=== PATIENT | female | born 1945 | race Caucasian/White ===

== ENCOUNTER → 2020-03-15 15:17 | Outpatient (CLI) | payer MEDICARE, OTHER, SELFPAY ==
--- NOTE | 2020-03-15 15:19 | DI.MRI.S_ITS ---
PROCEDURE: MR LUMBAR SPINE WO CON INDICATIONS: L1 fracture, L4-5 slip right lower extremity symptoms TECHNIQUE: Noncontrast sagittal T1 spin echo and T2 fast echo, sagittal STIR, axial T1 and T2 fast spin echo through the lumbar spine. In cases with scoliosis, additional coronal T2 fast spin echo may be performed. COMPARISON: [facility], , MRI L-SPINE W/O CONTRAST, 12/01/2016, 8:11. [facility], , MRI L-SPINE W/O CONTRAST, 07/12/2012, 9:04. [facility], , MRI L-SPINE W/O CONTRAST, 05/08/2015, 8:02. [facility], , XR L-SPINE 2-3V, 05/13/2016, 12:33. [facility], , CT L SPINE WITHOUT CONTRAST, 05/13/2016, 14:00. [facility], , XR L-SPINE 4-6V, 01/27/2020, 8:34. FINDINGS: Image quality: Excellent. Alignment and Curvature: There is minimal anterolisthesis seen at the L4-L5 level. Bone Marrow: Marrow is of normal overall signal. No acute vertebral body compression fractures. There is a remote appearing fracture seen involving the L2 vertebral body, with 30-40% loss of height anteriorly. Minimal posterior displacement of fracture fragments can be seen, approximately 2 mm. Spinal Cord: Conus medullaris terminates at the L1 level. Visualized cord demonstrates normal signal and size. Paraspinous Soft Tissues: No paravertebral masses. T12-L1: No significant abnormality is seen. L1-L2: The disc height is well-preserved. Loss of disc signal is seen at this level. Mild generalized disc bulge is seen. There is mild left-sided and no significant right-sided neural foraminal narrowing seen. Mild central canal narrowing is seen. When comparison is made with the prior examination, these findings are similar. L2-L3: The disc height is well-preserved. Loss of disc signal is seen at this level. Mild to moderate disc bulge is seen, with a mild central disc protrusion. There is oszi-cq-crzlrvqv right-sided and at least moderate left-sided neural foraminal narrowing seen. Mild central canal narrowing is seen. These imaging findings have progressed compared to the prior study. L3-L4: The disc height is well-preserved. Loss of disc signal is seen at this level. Moderate disc bulge is seen, which is eccentric to the left. Mild to moderate facet hypertrophy is seen. There is moderate right-sided and moderate to severe left-sided neural foraminal narrowing seen. There is a degree of compression seen upon the exiting left L3 nerve root. Mild central canal narrowing is seen. These imaging findings have progressed compared to the prior study. L4-L5: The disc height is well-preserved. Loss of disc signal is seen at this level. Moderate disc bulge is seen, with a mild central disc protrusion. Prominent facet hypertrophy is seen at this level. There is moderate to severe bilateral neural foraminal narrowing seen, left worse than right. There is a degree of compression seen upon the exiting nerve roots. Moderate to severe central canal narrowing is seen. Compared to 2017, these degenerative changes have progressed. L5-S1: The disc height is well-preserved. Loss of disc signal is seen at this level. Mild generalized disc bulge is seen. Mild facet joint hypertrophy is seen. Mild bilateral neural foraminal narrowing is seen. Mild to moderate central canal narrowing is seen at this level. Slight progression compared to 2017. IMPRESSION: Multiple levels of lumbar spine degenerative change are seen, which are overall worst at the L4-L5 level. Compared to 2017, the degenerative changes have progressed. Remote L2 anterior wedge deformity noted. Dictated by: Brigido Cook M.D. on 03/15/2020 at 15:55 Approved by: Brigido Cook M.D. on 03/15/2020 at 16:00
== END ==
PROVIDERS: PCP Nurse Practitioner Family; Referring Provider Physical Medicine & Rehabilitation; Visit Provider Physical Medicine & Rehabilitation
DX: S32.019A Unspecified fracture of first lumbar vertebra, initial encounter for closed fracture (principal); M51.26 Other intervertebral disc displacement, lumbar region; M43.16 Spondylolisthesis, lumbar region; M47.816 Spondylosis without myelopathy or radiculopathy, lumbar region
CPT/HCPCS: 72148

== ENCOUNTER → 2021-05-23 10:04 | Outpatient (CLI) | payer MEDICARE, OTHER, SELFPAY ==
[2021-05-23 14:03] LABS: COVID19 -Nasal RAPID Negative (Negative)
== END ==
PROVIDERS: PCP Nurse Practitioner Family; Visit Provider Physical Medicine & Rehabilitation
DX: Z20.822 Contact with and (suspected) exposure to COVID-19 (principal)
CPT/HCPCS: 87635; C9803

== ENCOUNTER 2021-05-24 09:44 | Outpatient (CLI) | payer MEDICARE, OTHER, SELFPAY ==
[2021-05-24] VITALS (8 sets, daily range): BP systolic 134–175; BP diastolic 67–81; PULSE 60–70; RESP 11–20; TEMP 36.7; O2SAT 98–100
--- NOTE | 2021-05-24 09:46 | DI.RAD.S_ITS ---
PROCEDURE: PAIN L/S TRANSFORAMINAL INJECT INDICATIONS: SPONDYLOSIS COMPARISON: None. FINDINGS: Fluoroscopic spot filming was performed to verify placement of spinal needles at the right L4-L5 neural foramen level(s), as labeled on the films. Appropriate location(s) of the needle tip(s) was confirmed by injection of iodinated contrast. IMPRESSION: Access needle at the right L4-L5 neural foramen for epidural steroid injection. Dictated by: Tir Hernandez MD, PhD on 05/24/2021 at 11:52 Approved by: Tri Hernandez MD, PhD on 05/24/2021 at 11:53
[2021-05-24] MEDS: MIDAZOLAM 5 MG/5 ML VIAL IV (10:39)
[2021-05-24] MEDS: BUPIVACAINE 0.25% (PF) VIAL 2 ML INJ (10:46)
[2021-05-24] MEDS: BETAMETHASONE 30 MG/5 ML MDV 6 MG INJ (10:46)
[2021-05-24] MEDS: IOPAMIDOL 15 ML VIAL 3 ML INJ (10:46)
[2021-05-24] MEDS: fentaNYL 250 MCG/5 ML INJ 50 MCG IV (10:47)
[2021-05-24] MEDS: DEXAMETHASONE 10 MG/ML VIAL 20 MG INJ (10:47)
--- NOTE | 2021-05-24 10:52 | P.PCN_ITS ---
Date/Time/Diagnoses Date of procedure: 05/24/21 Time of procedure: 10:52 Pre-procedure diagnosis: 1. FORAMINAL STENOSIS WITH LE SYMPTOMS Post-procedure diagnosis: same Procedure Notes Procedure: 1. FLUOROSCOPICALLY GUIDED CONTRAST CONTROLLED TRANSFORAMINAL EPIDURAL STEROID INJECTION - RIGHT L4/5 TFESI Indications: Yesi is referred by NOMI Young for treatment of Foraminal Stenosis with Right LE Symptoms Physician: Shiva Dixon Total Fluoroscopy time (seconds): 6 Total sedation minutes: 10 Complications: none Procedure in detail & Post-procedure care: FINDINGS Foraminal Nerve Root Compression secondary to disc disease and facet hypertrophy DESCRIPTION OF PROCEDURE Following review of allergy and review of potential side effects and complications, including, but not necessarily limited to, infection, allergic reaction, local tissue breakdown, stroke, temporary or permanent nerve injury, paralysis, and possible , the patient indicated that the patient understood and agreed to proceed. An informed consent document was signed by the patient, witnessed by a nurse, and placed in the patient's chart. Additionally, other treatment options including medications, modalities, and physical therapy were reviewed with the patient. After review of previous anaesthesic history and IV conscious sedation the patient was deemed safe to proceed with today?s procedure with IV conscious sedation as ASA class II designation. Safety time-out was performed to confirm patient ID, procedure to be performed and site of procedure. IV sedation was accomplished with a combination of 2mg of Versed and 50mcg of Fentanyl was administered by the RN after DO order, titrated to patient comfort during the course of the procedure while the patient remained responsive to all verbal c ommands In the prone position following sterile prep and drape of the lumbar region, the right L4/5 posterior neuroforamen was identified fluoroscopically. The skin was anesthetized via a 25-gauge 1.5-inch needle with 1% lidocaine solution. At this point, a 25-gauge 3.5-inch spinal needle was atraumatically introduced and advanced under fluoroscopic guidance through the posterior right L4/5 neuroforamen to approximately the anterior aspect of the canal. Depth was confirmed on lateral view. Following negative aspiration, injection of approximately 1.5cc of Isovue 200 under live fluoroscopy in the AP view confirmed excellent flow along the nerve root, into the epidural space without vascular or intrathecal uptake observed Radiological data, including multiple fluoroscopic views of the lumbosacral spine, reveal a spinal needle at the right L4/5 posterior neuroforamen. Subsequent views show flow of contrast material flowing superiorly and inferiorly along the nerve root confirming epidural flow. Subsequently, a test dose of 1.5 cc of 1% lidocaine solution was administered and patient was observed for two minutes for signs or symptoms of complications, including abdominal pain, shortness of breath, bilateral upper or lower extremity weakness, nausea and vomiting, prior to steroid injection. At this point, a total of 3cc or 20mg of dexamethasone and 6mg of betamethasone was injected without incident. The procedure tolerated the procedure well without signs or symptoms of complications prior to transfer to the recovery area continued monitoring without incident. The patient was then transferred to the recovery area where they were observed for an appropriate time after the injection. The patient reported a VAS score of 7 prior to the procedure and a post- procedure VAS of 0. POST OP INSTRUCTIONS The patient was provided a Pain Log to continue to record their response to the target-specific procedure prior to follow-up visit with their referring physician. Additionally, specific post-injection care instructions and a contact number to our office were provided if concerns arise regarding possible complications associated with the procedure are suspected.
== END 2021-05-24 11:17 | disposition home or self-care (01) ==
LOC: RAD 09:46
PROVIDERS: PCP Nurse Practitioner Family; Referring Provider Physical Medicine & Rehabilitation; Visit Provider Physical Medicine & Rehabilitation
DX: M48.061 Spinal stenosis, lumbar region without neurogenic claudication; M51.16 Intervertebral disc disorders with radiculopathy, lumbar region
CPT/HCPCS: 64483; 99152; J0702; J1100; J2250; J3010

== ENCOUNTER 2022-01-06 19:31 | Emergency (ER) | payer MEDICARE, OTHER, SELFPAY ==
[2022-01-06 19:49] VITALS: BP 137/64; PULSE 72; RESP 18; TEMP 36.6; O2SAT 97; BMI 20.1
--- NOTE | 2022-01-06 19:49 | ED_ITS ---
HPI - Extremity Injury (Upper) General Chief Complaint: Extremity Injury, Upper Stated Complaint: Broken left arm Time Seen by Provider: 01/06/22 19:49 History of Present Illness HPI narrative: 76-year-old female former smoker with history of hypertension and osteopenia presents with a chief complaint of left wrist pain with obvious deformity after a ground level fall earlier today. [place] when she lost her balance and fell onto an outstretched wrist and now has pain and deformity with decreased range of motion. She denies any numbness or tingling. She denies any head, neck or back pain. She has no elbow or shoulder pain. She denies prodromal symptoms such as dizziness, weakness or lightheadedness. She is a former emergency department nurse and self splinted Related Data Home Medications Medication Instructions Recorded Confirmed acetaminophen 500 mg tablet 500 mg PO Q6H PRN 03/08/20 11/30/21 (Tylenol Extra Strength) acyclovir 400 mg tablet 400 mg PO DAILY 03/08/20 11/30/21 amlodipine 5 mg tablet (Norvasc) 5 mg PO DAILY 03/08/20 11/30/21 ascorbic acid (vitamin C) 250 mg PO DAILY 03/08/20 11/30/21 atorvastatin 10 mg tablet 10 mg PO DAILY 03/08/20 11/30/21 calcium carb-vit [id number] 1 tab PO DAILY 03/08/20 11/30/21 333 mg-200 unit-133 mg-5 mg tablet cholecalciferol (vitamin D3) 125 125 mcg PO DAILY 03/08/20 11/30/21 mcg (5,000 unit) capsule denosumab 60 mg/mL subcutaneous 60 mg SUBCUT [id number] 03/08/20 11/30/21 syringe (Prolia) lisinopril 40 mg tablet 40 mg PO DAILY 03/08/20 11/30/21 mecobalamin (vitamin B12) 5,000 mcg PO 03/08/20 11/30/21 mcg disintegrating tablet melatonin 1 mg tablet 0.5 mg PO BEDTIME 03/08/20 11/30/21 ropinirole 0.5 mg tablet 0.5 mg PO BEDTIME 11/30/21 11/30/21 Previous Rx's Medication Instructions Recorded pramipexole 0.25 mg tablet 0.25 mg PO BEDTIME #60 tabs 11/30/21 (Mirapex) hydrocodone 5 mg-acetaminophen 325 1 tab PO Q4-6H PRN pain #20 tabs 01/06/22 mg tablet ondansetron 4 mg disintegrating 4 mg PO TID-QID PRN nausea and 01/06/22 tablet vomiting #10 tabs Allergies Allergy/AdvReac Type Severity Reaction Status Date / Time gluten Allergy Intermediate CELIAC/DERM Verified 11/30/21 15:36 ATITIS/HERP ETIFORMIS Review of Systems Review of Systems Narrative: GENERAL: Denies chills, fatigue, malaise, fever, sweats. HEENT: Denies sinus pain, ear pain, sore throat, difficulty swallowing, dizziness. RESPIRATORY: Denies dyspnea, cough, wheezing, hemoptysis, sputum. CARDIOVASCULAR: Denies chest pain, palpitations, orthopnea, edema, GASTROINTESTINAL: Denies nausea, vomiting, abdominal pain, diarrhea, constipation, melena. : Denies dysuria, frequency, incontinence, hematuria, urinary retention. MUSCULOSKELETAL: See HPI SKIN: Denies rash, skin lesions, or other NEUROLOGIC: Denies weakness, headache, numbness, change in speech, confusion, seizures, incoordination. PSYCHIATRIC: No concerning psychosocial issues. 12 point review of systems is negative except for those stated above Patient History Medical History Greater trochanteric bursitis of right hip Herniated nucleus pulposus, L3-4 right L1 vertebral fracture Osteoporosis Restless leg syndrome Spondylolisthesis at L4-L5 level Surgical History History of biopsy of bladder History of revision of arthroplasty of head of left radius History of tonsillectomy and adenoidectomy Family History Father Alzheimer disease Alcoholism Mother Hypertension Osteoarthritis Osteoporosis Brother SIDS (sudden infant syndrome) Social History Smoking Status: Former smoker Smoking Status: Former smoker Exam Narrative Exam Narrative: GENERAL: [76] year old patient appears stated age. Well-developed patient, in mild distress. HEAD: Atraumatic. Normocephalic. EYES: Pupils equal round and reactive. Extraocular motions intact. No scleral icterus. No injection or drainage. ENT: Nose without bleeding, purulent drainage. Throat without erythema, tonsillar hypertrophy or exudate. Airway patent. NECK: Trachea midline. Non tender CARDIOVASCULAR: Regular rate and rhythm without murmurs, gallops, or rubs. RESPIRATORY: Clear to auscultation. Breath sounds equal bilaterally. No wheezes, rales, or rhonchi. GASTROINTESTINAL: Abdomen soft, non-tender, nondistended. EXTREMITIES: Obvious deformity left wrist consistent with distal radius fracture this is closed, isolated and neurovascularly intact, significantly painful on palpation, no breaks in the skin, no pain in elbow or shoulder BACK: Nontender without deformity or crepitance. No flank tenderness. NEURO: AOx3. SKIN: No rash or erythema of visible areas Initial Vital Signs Initial Vital Signs: Vital Signs Temperature 97.8 F 01/06/22 19:49 Pulse Rate 72 01/06/22 19:49 Respiratory Rate 18 01/06/22 19:49 Blood Pressure 137/64 01/06/22 19:49 Pulse Oximetry 97 01/06/22 19:49 Oxygen Delivery Method 01/06/22 19:49 Procedures Orthopedic Fracture Reduction Fracture #1: Time Out Performed: Yes Side: left Fracture Reduction Location: radius Analgesia: hematoma block Technique: direct manipulation and traction/counter-traction Post Reduction X-rays Demonstrate: anatomical reduction Post-reduction neuro exam: intact Post-reduction vascular exam: intact Splint Applied: Yes Patient Tolerated Procedure: Well Orthopedic Splinting/Casting Injury #1: Side: left Upper Extremity Injury Location: wrist Upper Extremity Immobilizer: sling/shoulder immobilizer and sugar tong splint Post splinting neuro exam: intact Post splinting vascular exam: intact Placed by: Provider Course Orders Ordered: ED Orders 01/06/22 19:56 XR wrist LT min 3V Stat 01/06/22 22:02 XR wrist LT 2V Stat Discontinued Medications Hydrocodone Bitart/Acetaminophen (Hydrocodone/Acet 5/325 Prepack) 1 bottle MISC SEEINSTR ONE Stop: 01/06/22 22:03 Last Admin: 01/06/22 22:15 Dose: 1 bottle Documented By: ALFONZO Ondansetron HCl (Ondansetron 4 Mg Odt Prepack) 1 bottle MISC SEEINSTR ONE Stop: 01/06/22 22:03 Last Admin: 01/06/22 22:15 Dose: 1 bottle Documented By: RL Consultations Consultation #1: Discussed with on-call orthopedist (Dr. Álvarez). She has reviewed pre and postreduction films, happy with result and splint, recommends follow-up in the office next week Vital Signs Vital signs: Vital Signs - 8 hr 01/06/22 19:49 01/06/22 21:22 Temperature 97.8 F Pulse Rate 72 63 Respiratory Rate 18 16 Blood Pressure 137/64 195/74 H Pulse Oximetry 97 97 Oxygen Delivery Method Room Air Room Air MDM - Extremity Injury (Upper) Imaging Data Extremity x-ray #1: Radiologist's Impression: [address] [address] XRay Report Signed Patient: Yesi Nam) MR#: [id number] : 1945 Acct:[id number] Age/Sex: 76 / F Date of Service: 01/06/22 Loc: ED Accession Number: [id number] ?? Procedure: XR wrist LT min 3V Ordering Provider: Karl Brown D.O. PROCEDURE:? XR WRIST LT MIN 3V ? INDICATIONS: fell, possible fracture ? TECHNIQUE:? 4 views of the wrist were acquired.? ? COMPARISON:? None. ? FINDINGS:? ? Bones:? Bones are osteopenic.? Distal radius fracture with mild impaction and dorsal angulation.? Suspect ulnar styloid fracture.? If the ulnar styloid is not acutely fractured there is probable remote fracture.? 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 No suspicious osseous lesion. ? Scaphoid view:? Intact. ? Soft tissues:? No suspicious soft tissue calcifications.? ? IMPRESSION:? Acute distal radius fracture.? ? Probable acute ulnar styloid fracture. ? ? Dictated by: Melvin Cormier M.D. on 01/06/2022 at 20:15 ? ? Approved by: Melvin Cormier M.D. on 01/06/2022 at 20:17 ? Extremity x-ray #2: Radiologist's Impression: [address] [address] XRay Report Signed Patient: Yesi Nam) MR#: [id number] : 1945 Acct:[id number] Age/Sex: 76 / F Date of Service: 01/06/22 Loc: ED Accession Number: [id number] ?? Procedure: XR wrist LT 2V Ordering Provider: Karl Brown D.O. PROCEDURE:? XR WRIST LT 2V ? INDICATIONS: post reduction ? TECHNIQUE:? 2 views of the wrist were acquired.? ? COMPARISON:? [facility], CR, XR WRIST LT MIN 3V, 01/06/2022, 20:01. ? FINDINGS:? ? Bones:? Distal radius fracture.? Improved alignment post casting.? Casting material obscures fine bony detail.? No suspicious bony lesions.? ? Soft tissues:? No suspicious soft tissue calcifications.? ? IMPRESSION:? Distal radius fracture with improved alignment post casting. ? ? Dictated by: Melvin Cormier M.D. on 01/06/2022 at 22:52 ? ? Approved by: Melvin Cormier M.D. on 01/06/2022 at 22:53 ? Discharge Plan Departure Patient Disposition: Home Clinical Impression: Closed fracture of left distal radius Qualifiers: Encounter type: initial encounter Fracture morphology: unspecified fracture morphology Qualified Code(s): S52.502A - Unspecified fracture of the lower end of left radius, initial encounter for closed fracture Instructions: DI for Distal Radius Fracture Activity Restrictions/Additional Instructions: *You have been diagnosed with [left distal radius fracture] *What to do: *Please continue to take your regular medications as directed. [ x] New medication prescriptions sent to your pharmacy: [ [facility] in [place]] [ ] New medication written as a paper prescription [x] Tylenol and occasional Motrin for pain *Please follow up with [ Henri] of [facility] in 2-3 days, call for an appointment. Let them know you were seen in the Emergency Department and that we ask that you be seen in follow up. We will electronically transmit a record of today's note if your PCP is in our system *Return to Emergency Department if you should have any new, worsening or concerning symptoms, such as [worsening pain, significant swelling, cold extremities, numbness, tingling, weakness or other bothersome symptoms Splint Care: Keep splint clean and dry. Elevated affected body part to decrease swelling. OK to use ice pack on the affected body part. Use for 15-20 minutes each time, for 5-6x per day. If you develop worsening pain, numbness, tingling, discoloration of the affected body part, loosen the splint by loosening the STEVEN wrap, and either see your doctor for an urgent re-assessment, or return to the Emergency Department. Return to the Emergency Department for any new or worsening symptoms. You have been prescribed a short course of narcotic medications. These are potentially dangerous and addictive medications that should be used carefully. While on these medications you cannot drive or operate heavy machinery. Additionally, you cannot sign legal documents or perform any duties such as this. Many people get constipated on narcotic medications so it would be advisable to discuss stool softeners with the pharmacist when you pharmacy picking tech your prescription. Please understand that we cannot provide further refills of narcotics or controlled substances through the ED and your pain management will need to be through your Primary Care Provider Prescriptions: New hydrocodone-acetaminophen 5-325 mg tablet 1 tab PO Q4-6H PRN (Reason: pain) Qty: 20 0RF ondansetron 4 mg tablet,disintegrating 4 mg PO TID-QID PRN (Reason: nausea and vomiting) Qty: 10 0RF No Action acyclovir 400 mg tablet 400 mg PO DAILY atorvastatin 10 mg tablet 10 mg PO DAILY amlodipine [Norvasc] 5 mg tablet 5 mg PO DAILY lisinopril 40 mg tablet 40 mg PO DAILY Prolia 60 mg/mL syringe 60 mg SUBCUT [id number] acetaminophen [Tylenol Extra Strength] 500 mg tablet 500 mg PO Q6H PRN mecobalamin (vitamin B12) 5,000 mcg tablet,disintegrating PO calcium carb-D3-mag [id number] lb-kskb-vy-mg tablet 1 tab PO DAILY Rx Instructions: administer with a meal cholecalciferol (vitamin D3) 125 mcg (5,000 unit) capsule 125 mcg PO DAILY ascorbic acid (vitamin C) Granules 250 mg PO DAILY melatonin 1 mg tablet 0.5 mg PO BEDTIME ropinirole 0.5 mg tablet 0.5 mg PO BEDTIME Hold Instructions: Home Medication placed on hold at Doctor's office pramipexole [Mirapex] 0.25 mg tablet 0.25 mg PO BEDTIME MDD 2 tabs PO bedtime Qty: 60 2RF Referrals: Ana Álvarez MD [Physician] - Joelle Young ARNP [Primary Care Provider] - Visit Report Forms: Patient Portal/API
--- NOTE | 2022-01-06 19:56 | DI.RAD.S_ITS ---
PROCEDURE: XR WRIST LT MIN 3V INDICATIONS: fell, possible fracture TECHNIQUE: 4 views of the wrist were acquired. COMPARISON: None. FINDINGS: Bones: Bones are osteopenic. Distal radius fracture with mild impaction and dorsal angulation. Suspect ulnar styloid fracture. If the ulnar styloid is not acutely fractured there is probable remote fracture. 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 No suspicious osseous lesion. Scaphoid view: Intact. Soft tissues: No suspicious soft tissue calcifications. IMPRESSION: Acute distal radius fracture. Probable acute ulnar styloid fracture. Dictated by: Melvin Cormier M.D. on 01/06/2022 at 20:15 Approved by: Melvin Cormier M.D. on 01/06/2022 at 20:17
[2022-01-06 21:22] VITALS: BP 195/74; PULSE 63; RESP 16; O2SAT 97
--- NOTE | 2022-01-06 22:02 | DI.RAD.S_ITS ---
PROCEDURE: XR WRIST LT 2V INDICATIONS: post reduction TECHNIQUE: 2 views of the wrist were acquired. COMPARISON: [facility], CR, XR WRIST LT MIN 3V, 01/06/2022, 20:01. FINDINGS: Bones: Distal radius fracture. Improved alignment post casting. Casting material obscures fine bony detail. No suspicious bony lesions. Soft tissues: No suspicious soft tissue calcifications. IMPRESSION: Distal radius fracture with improved alignment post casting. Dictated by: Melvin Cormier M.D. on 01/06/2022 at 22:52 Approved by: Melvin Cormier M.D. on 01/06/2022 at 22:53
[2022-01-06] MEDS: HYDROCODONE/ACET 5/325 PREPACK 1 BOTTLE MISC (22:15)
[2022-01-06] MEDS: ONDANSETRON 4 MG ODT PREPACK 1 BOTTLE MISC (22:15)
--- NOTE | 2022-01-06 22:26 | PC.NURSE ---
Patient removed ring from left hand and gave to .
== END 2022-01-06 21:25 | disposition home or self-care (01) ==
PROVIDERS: Emergency Provider Emergency Medicine; PCP Nurse Practitioner Family
DX: S52.502A Unspecified fracture of the lower end of left radius, initial encounter for closed fracture (principal); W18.30XA Fall on same level, unspecified, initial encounter; Y92.832 Beach as the place of occurrence of the external cause
CPT/HCPCS: 25605; 73100; 73110; 99283